=== PATIENT | male | born 1945 | race African-American/Black ===

== ENCOUNTER 2017-10-28 03:52 | Emergency (ER) | payer OTHER, MEDICAID ==
[~2017-10-28] VITALS: Ht 182.9 cm; Wt 75.0 kg
[2017-10-28 05:30] LABS: BASOPHILS % 0.9 % (0.0-2.0); EOSINOPHILS % 2.8 % (0.0-5.0); HEMATOCRIT. 34.4 % (42.0-52.0); HEMOGLOBIN. 11.6 g/dL (14.0-18.0); LYMPHOCYTES % 26.9 % (20.0-50.0); MEAN CORPUSCULAR HEMOGLOBIN 30.8 pg (28.0-32.0); MEAN CORPUSCULAR VOLUME 91.5 fL (80.0-94.0); MONOCYTES % 13.9 % (2.0-8.0); NEUTROPHILS % 55.5 % (40.0-76.0); PLATELET 178 x1000/uL (130-400); RED BLOOD CELL COUNT 3.76 mill/uL (4.7-6.1); RED CELL DISTRIBUTION WIDTH 13.5 % (11.6-14.6)
[2017-10-28 05:37] LABS: CHLORIDE 106 mEq/L (98-107)
[2017-10-28 05:41] LABS: ETHANOL BLOOD < 10 mg/dL
[2017-10-28 05:45] LABS: CREATINE KINASE 213 IU/L (39-308)
[2017-10-28 06:35] LABS: INR 1.1; PARTIAL THROMBOPLASTIN TIME 24.3 sec (23.4-31.0); PROTHROMBIN TIME 11.1 sec (9.4-11.6)
[2017-10-28 06:57] VITALS: BP 124/86
== END 2017-10-28 06:59 | disposition home or self-care (01) ==
LOC: ER 03:52
DX: R42 Dizziness and giddiness (principal); R53.1 Weakness; I10 Essential (primary) hypertension; Z91.81 History of falling; R90.82 White matter disease, unspecified; I25.2 Old myocardial infarction; Z95.5 Presence of coronary angioplasty implant and graft
CPT/HCPCS: 36415; 70450; 71045; 72125; 80053; 82550; 84484; 85025; 85610; 85730; 93005; 99285; G0482

== ENCOUNTER 2020-08-12 13:53 | Emergency (ER) | payer OTHER, MEDICAID ==
[~2020-08-12] VITALS: Ht 182.9 cm; Wt 86.5 kg
[2020-08-12] MEDS ORDERED: nitro (14:02)
[2020-08-12] MEDS ORDERED: lisinopril (14:02)
[2020-08-12] MEDS ORDERED: SODIUM CHLORIDE 0.9% 1,000 ML IV ONE (14:30)
[2020-08-12 14:48] LABS: CHLORIDE 107 mEq/L (98-107)
[2020-08-12 14:52] LABS: ETHANOL BLOOD < 10 mg/dL
[2020-08-12 14:54] LABS: EOSINOPHILS % 2.7 % (0.0-5.0); HEMATOCRIT. 37.3 % (42.0-52.0); HEMOGLOBIN. 12.6 g/dL (14.0-18.0); LYMPHOCYTES % 20.9 % (20.0-50.0); MEAN CORPUSCULAR HEMOGLOBIN 30.9 pg (28.0-32.0); MEAN CORPUSCULAR VOLUME 91.3 fL (80.0-94.0); MEAN PLATELET VOLUME 9.1 fl (7.4-10.4); MONOCYTES % 11.6 % (2.0-8.0); NEUTROPHILS % 63.8 % (40.0-76.0); PLATELET 203 x1000/uL (130-400); RED BLOOD CELL COUNT 4.08 mill/uL (4.7-6.1)
[2020-08-12 14:57] LABS: CREATINE KINASE 76 IU/L (39-308)
[2020-08-12 16:26] LABS: CLARITY URINE CLOUDY (CLEAR); COLOR URINE DARK YELLOW (YELLOW); KETONES URINE TRACE (NEGATIVE); LEUKOCYTE ESTERASE URINE TRACE (NEGATIVE); NITRITE URINE NEGATIVE (NEGATIVE); OCCULT BLOOD URINE 2+ (NEGATIVE); PH URINE 5.5 (4.5-8.0); PROTEIN URINE 3+ (NEGATIVE); SPECIFIC GRAVITY URINE 1.027 (1.005-1.030)
[2020-08-12 16:30] VITALS: BP 127/86
[2020-08-12 17:00] LABS: *AMPHETAMINES SCREEN URINE NEGATIVE (NEGATIVE)
[2020-08-12 17:01] LABS: *BARBITURATES SCREEN URINE NEGATIVE (NEGATIVE); *BENZODIAZEPINES SCREEN URINE NEGATIVE (NEGATIVE); *COCAINE SCREEN URINE NEGATIVE (NEGATIVE); METHADONE URINE SCREEN NEGATIVE (NEGATIVE)
[2020-08-12 17:02] LABS: CANNABINOID URINE SCREEN PRESUMTIVE POSITIVE (NEGATIVE); OPIATES URINE SCREEN PRESUMTIVE POSITIVE (NEGATIVE); PHENCYCLIDINE URINE SCREEN NEGATIVE (NEGATIVE)
== END 2020-08-12 17:05 | disposition short-term general hospital (02) ==
LOC: ER 13:53
DX: T40.2X1A Poisoning by other opioids, accidental (unintentional), initial encounter (principal); T46.3X1A Poisoning by coronary vasodilators, accidental (unintentional), initial encounter; Y92.89 Other specified places as the place of occurrence of the external cause; E78.00 Pure hypercholesterolemia, unspecified; I10 Essential (primary) hypertension; I25.2 Old myocardial infarction
CPT/HCPCS: 36415; 71045; 80053; 80305; 80307; 80320; 80329; 81003; 82550; 84484; 85025; 93005; 96360; 99285; J7030; G0480